=== PATIENT | female | born 1990 ===

== ENCOUNTER 2018-06-13 14:11 | Outpatient (CLI) | payer OTHER ==
[~2018-06-13 14:11] MED LIST: CEFADROXIL500 MG PO; PRENATAL CAPLE1 EACH PO; VALTREX1000 MG PO
== END 2018-06-13 14:29 | disposition home or self-care (01) ==
LOC: SONOGRAMA 14:11
DX: N80.8 Other endometriosis (principal)

== ENCOUNTER → 2018-11-13 | Emergency (ER) | payer OTHER ==
[~2018-11-13] VITALS: Ht 160 cm; Wt 77.1 kg
== END | disposition left against medical advice (07) ==
LOC: ER 22:27
DX: Z53.20 Procedure and treatment not carried out because of patient's decision for unspecified reasons (principal)

== ENCOUNTER 2019-02-27 07:30 | Day surgery (SDC) | payer OTHER | END 2019-02-27 17:35 | disposition home or self-care (01) | LOC: CIR.AMB 07:30 | DX: N84.0 Polyp of corpus uteri (principal) ==

== ENCOUNTER 2020-03-26 11:37 | Outpatient (CLI) | payer OTHER | END 2020-03-26 11:44 | disposition home or self-care (01) | LOC: SONOGRAMA 11:37 | PROVIDERS: ATTEND Pathology Anatomic Pathology | DX: E04.2 Nontoxic multinodular goiter (principal) ==

== ENCOUNTER 2021-08-30 19:23 | Outpatient (CLI) | payer OTHER | END 2021-08-30 19:53 | disposition home or self-care (01) | LOC: NST 19:23 | PROVIDERS: ATTEND Obstetrics & Gynecology Maternal & Fetal Medicine | DX: Z34.83 Encounter for supervision of other normal pregnancy, third trimester (principal) ==

== ENCOUNTER 2021-09-07 18:21 | Inpatient (IN) | payer OTHER ==
[~2021-09-07] VITALS: Ht 160 cm; Wt 77.6 kg
[2021-09-07] MEDS ORDERED: PRENATAL CAPLE1 EAC1 PO (20:03)
[2021-09-07] MEDS ORDERED: NIFEDIPINE20 MG PO (20:03)
== END 2021-09-10 11:47 | disposition home or self-care (01) | DRG 833 ==
LOC: LDR 18:21 → OB/GYN 09-09 08:14
PROVIDERS: ADMIT Obstetrics & Gynecology Maternal & Fetal Medicine; ATTEND Obstetrics & Gynecology Maternal & Fetal Medicine
PROC: 4A1HXFZ Monitoring of Products of Conception, Cardiac Rhythm, External Approach (ICD-10-PCS; principal; 2021-09-07)
PROC: BU46ZZZ Ultrasonography of Uterus (ICD-10-PCS; 2021-09-08)
DX: O34.32 Maternal care for cervical incompetence, second trimester (principal); O26.872 Cervical shortening, second trimester; Z3A.27 27 weeks gestation of pregnancy

== ENCOUNTER 2021-09-23 11:32 | Outpatient (CLI) | payer OTHER ==
[~2021-09-23 11:32] MED LIST changes: +NIFEDIPINE20 MG PO; +PRENATAL CAPLE1 EAC1 PO
== END 2021-09-23 12:19 | disposition home or self-care (01) ==
LOC: NST 11:32
PROVIDERS: ATTEND Obstetrics & Gynecology Maternal & Fetal Medicine
DX: Z34.83 Encounter for supervision of other normal pregnancy, third trimester (principal)

== ENCOUNTER 2021-11-17 07:30 | Inpatient (IN) | payer OTHER ==
[~2021-11-17] VITALS: Ht 160 cm; Wt 3.2 kg
== END 2021-11-27 13:19 | disposition home or self-care (01) | DRG 788 ==
LOC: OB/GYN 11-24 07:30 → O/R 11-24 10:00 → OB/GYN 11-24 10:45
PROVIDERS: ADMIT Obstetrics & Gynecology Maternal & Fetal Medicine; ATTEND Obstetrics & Gynecology Maternal & Fetal Medicine
PROC: 4A1HXCZ Monitoring of Products of Conception, Cardiac Rate, External Approach (ICD-10-PCS; 2021-11-24)
PROC: 0DNW0ZZ Release Peritoneum, Open Approach (ICD-10-PCS; 2021-11-24)
PROC: 10D00Z1 Extraction of Products of Conception, Low, Open Approach (ICD-10-PCS; principal; 2021-11-24 10:45)
DX: O34.211 Maternal care for low transverse scar from previous cesarean delivery (principal); Z3A.39 39 weeks gestation of pregnancy; Z20.822 Contact with and (suspected) exposure to COVID-19; Z37.0 Single live birth; O99.891 Other specified diseases and conditions complicating pregnancy; N73.6 Female pelvic peritoneal adhesions (postinfective)

== ENCOUNTER 2025-02-26 09:19 | Outpatient (CLI) | payer OTHER | END 2025-02-26 09:21 | disposition home or self-care (01) | LOC: SONOGRAMA 09:19 | PROVIDERS: ATTEND Specialist | DX: E04.1 Nontoxic single thyroid nodule (principal) ==